=== PATIENT | male | born 1950 | race Caucasian/White ===

== ENCOUNTER 2024-03-06 22:55 | Inpatient (IN) | payer OTHER ==
[~2024-03-06] VITALS: Ht 170.2 cm; Wt 69.0 kg
[2024-03-07 00:11] LABS: CLARITY URINE TURBID (CLEAR); COLOR URINE RED (YELLOW); LEUKOCYTE ESTERASE URINE 2+ (NEGATIVE); NITRITE URINE POSITIVE (NEGATIVE); OCCULT BLOOD URINE 2+ (NEGATIVE); PROTEIN URINE 3+ (NEGATIVE); SPECIFIC GRAVITY URINE 1.037 (1.005-1.030); UROBILINOGEN URINE 0.2 E.U./dL (0.2-1.0)
[2024-03-07 00:38] LABS: GLUCOSE URINE TRACE (NEGATIVE); KETONES URINE TRACE (NEGATIVE)
[2024-03-07 00:53] LABS: BASOPHILS % 0.3 % (0.0-2.0); EOSINOPHILS % 0.6 % (0.0-5.0); HEMATOCRIT. 39.2 % (42.0-52.0); HEMOGLOBIN. 13.5 g/dL (14.0-18.0); LYMPHOCYTES % 7.9 % (20.0-50.0); MEAN CORPUSCULAR HEMOGLOBIN 29.7 pg (28.0-32.0); MEAN CORPUSCULAR HGB CONC 34.4 g/dL (31.0-37.0); MEAN CORPUSCULAR VOLUME 86.4 fL (80.0-94.0); MEAN PLATELET VOLUME 8.6 fl (7.4-10.4); MONOCYTES % 4.4 % (2.0-8.0); NEUTROPHILS % 86.8 % (40.0-76.0); PLATELET 240 x1000/uL (130-400); RED BLOOD CELL COUNT 4.53 mill/uL (4.7-6.1); RED CELL DISTRIBUTION WIDTH 13.2 % (11.6-14.6); WHITE BLOOD COUNT 9.8 x1000/uL (4.5-11.0)
[2024-03-07 00:55] LABS: RBC URINE TNTC /hpf (0-2); SQUAMOUS EPITHELIAL CELL URINE NONE SEEN /lpf (RARE/1+); WBC URINE 0-2 /hpf (0-2)
[2024-03-07 00:56] LABS: BACTERIA URINE NONE SEEN
[2024-03-07 00:58] LABS: CHLORIDE 107 mEq/L (98-107); POTASSIUM 4.4 mEq/L (3.5-5.1); SODIUM 139 mEq/L (136-145)
[2024-03-07 00:59] LABS: CARBON DIOXIDE 24 mEq/L (21-32)
[2024-03-07 01:04] LABS: CREATININE 0.8 mg/dL (0.6-1.3); GLUCOSE 128 mg/dL (70-105)
[2024-03-07 01:05] LABS: UREA NITROGEN BLOOD 18 mg/dL (9-23)
[2024-03-07] MEDS: CEFTRIAXONE 1GM/50ML 50 ML IV ONE (01:33)
[2024-03-07] MEDS ORDERED: ONDANSETRON HCL 4MG/2ML INJ IV PRN (10:15)
[2024-03-07] MEDS ORDERED: IPRATROPIUM/ALBUTEROL 0.5-3(2.5)MG/3ML NEB HHN PRN (10:15)
[2024-03-07] MEDS ORDERED: SODIUM CHLORIDE 0.9% 1,000 ML IV SCH (10:15)
[2024-03-07] MEDS ORDERED: MAGNESIUM/ALUMINUM HYDROXIDE/SIMETHICONE 30ML UDC PO PRN (10:15)
[2024-03-07] MEDS ORDERED: CLONIDINE 0.1MG TABLET PO PRN (10:15)
[2024-03-07] MEDS ORDERED: ACETAMINOPHEN 325MG TABLET PO PRN ×2 (10:15)
[2024-03-07] MEDS ORDERED: PIPERACILLIN/TAZOBACTAM 3.375 G in DEXTROSE 5% WATER 50 ML IV SCH (10:15)
[2024-03-07] MEDS: PIPERACILLIN/TAZO 3.375G/50ML IV SCH (11:05)
[2024-03-07] MEDS: SODIUM CHLORIDE 0.9% 1,000 ML IV SCH (11:13)
[2024-03-07] MEDS: PANTOPRAZOLE SODIUM 40 MG/VIAL IV SCH (11:18)
[2024-03-07 13:17] LABS: T4 FREE 0.93 ng/dL (0.89-1.76); THYROID STIMULATING HORMONE 3.26 uIU/mL (0.55-4.78)
[2024-03-07] MEDS: VANCOMYCIN 1.5GM/250ML IV NR (14:40)
[2024-03-08] VITALS: BP 124/78; PULSE 75; RESP 18; TEMP 97.5; TEMP 98.8
[2024-03-08 04:00] VITALS: BP 112/60; PULSE 70; RESP 19; TEMP 97.5
[2024-03-08 04:42] LABS: BASOPHILS % 0.4 % (0.0-2.0); EOSINOPHILS % 1.9 % (0.0-5.0); HEMOGLOBIN. 11.8 g/dL (14.0-18.0); LYMPHOCYTES % 10.5 % (20.0-50.0); MEAN CORPUSCULAR HEMOGLOBIN 29.4 pg (28.0-32.0); MEAN CORPUSCULAR HGB CONC 33.7 g/dL (31.0-37.0); MEAN CORPUSCULAR VOLUME 87.3 fL (80.0-94.0); MEAN PLATELET VOLUME 9.1 fl (7.4-10.4); MONOCYTES % 7.9 % (2.0-8.0); NEUTROPHILS % 79.3 % (40.0-76.0); PLATELET 225 x1000/uL (130-400); RED BLOOD CELL COUNT 4.01 mill/uL (4.7-6.1); RED CELL DISTRIBUTION WIDTH 13.4 % (11.6-14.6); WHITE BLOOD COUNT 9.9 x1000/uL (4.5-11.0)
[2024-03-08 04:48] LABS: CHLORIDE 107 mEq/L (98-107); POTASSIUM 4.2 mEq/L (3.5-5.1); SODIUM 139 mEq/L (136-145)
[2024-03-08 04:49] LABS: CALCIUM 8.4 mg/dL (8.7-10.4); CARBON DIOXIDE 24 mEq/L (21-32)
[2024-03-08 04:54] LABS: CREATININE 0.7 mg/dL (0.6-1.3); GLUCOSE 114 mg/dL (70-105); UREA NITROGEN BLOOD 11 mg/dL (9-23)
[2024-03-08 08:00] VITALS: BP 116/77; PULSE 60; RESP 19; TEMP 98.1
[2024-03-08] MEDS ORDERED: CAND32TA21 MT (10:26)
[2024-03-08 12:00] VITALS: BP 116/73; PULSE 69; RESP 20; TEMP 98.1
[2024-03-08] MEDS ORDERED: VANCOMYCIN 1GM/200ML PMX (BAXTER) IV SCH (12:00)
[2024-03-08] MEDS ORDERED: NON FORMULARY PATIENT HOME MED XX SCH (12:00)
[2024-03-08] MEDS ORDERED: VANCOMYCIN 1.25GM PMX (XELLIA) 250 ML IV SCH (12:00)
[2024-03-08] MEDS: VANCOMYCIN 750MG PREMIX 150 ML IV SCH (13:13)
[2024-03-08 15:51] LABS: ALANINE AMINOTRANSFERASE 14 IU/L (10-49); ALBUMIN 3.7 g/dL (3.2-4.8); ASPARTATE AMINOTRANSFERASE 22 IU/L (<34); BILIRUBIN DIRECT 0.3 mg/dL (<=3.0); PROTEIN TOTAL 5.8 g/dL (6.0-8.3)
[2024-03-08 16:00] VITALS: BP 114/63; PULSE 77; RESP 20; TEMP 98.1
[2024-03-08 20:00] VITALS: BP 119/77; PULSE 74; RESP 19; TEMP 98.2
[2024-03-09 04:00] VITALS: BP 122/66; PULSE 72; RESP 18; TEMP 97.7
[2024-03-09 07:26] LABS: CHLORIDE 107 mEq/L (98-107); POTASSIUM 4.1 mEq/L (3.5-5.1); SODIUM 140 mEq/L (136-145)
[2024-03-09 07:28] LABS: CARBON DIOXIDE 26 mEq/L (21-32)
[2024-03-09 07:29] LABS: CALCIUM 8.5 mg/dL (8.7-10.4)
[2024-03-09 07:33] LABS: BASOPHILS % 0.6 % (0.0-2.0); CREATININE 0.9 mg/dL (0.6-1.3); GLUCOSE 102 mg/dL (70-105); HEMATOCRIT. 31.9 % (42.0-52.0); HEMOGLOBIN. 10.8 g/dL (14.0-18.0); LYMPHOCYTES % 16.8 % (20.0-50.0); MEAN CORPUSCULAR HEMOGLOBIN 29.7 pg (28.0-32.0); MEAN CORPUSCULAR HGB CONC 33.9 g/dL (31.0-37.0); MEAN CORPUSCULAR VOLUME 87.6 fL (80.0-94.0); MEAN PLATELET VOLUME 8.9 fl (7.4-10.4); MONOCYTES % 7.9 % (2.0-8.0); NEUTROPHILS % 70.7 % (40.0-76.0); PLATELET 232 x1000/uL (130-400); RED BLOOD CELL COUNT 3.64 mill/uL (4.7-6.1); WHITE BLOOD COUNT 8.9 x1000/uL (4.5-11.0)
[2024-03-09 07:34] LABS: UREA NITROGEN BLOOD 11 mg/dL (9-23)
[2024-03-09 07:35] LABS: ALANINE AMINOTRANSFERASE 14 IU/L (10-49); ALBUMIN 3.4 g/dL (3.2-4.8); ASPARTATE AMINOTRANSFERASE 22 IU/L (<34)
[2024-03-09 07:36] LABS: BILIRUBIN DIRECT 0.3 mg/dL (<=3.0); BILIRUBIN TOTAL 0.9 mg/dL (0.1-1.0); PROTEIN TOTAL 5.4 g/dL (6.0-8.3)
[2024-03-09 08:00] VITALS: BP 122/74; PULSE 74; RESP 18; TEMP 97.9
[2024-03-09] MEDS: LOSARTAN 100 MG TABLET PO SCH (09:00)
[2024-03-09 12:00] VITALS: BP 122/69; PULSE 85; RESP 18; TEMP 98
[2024-03-09] MEDS: VANCOMYCIN 1G PREMIX 200 ML IV SCH ×2 (12:00→21:26)
[2024-03-09 20:00] VITALS: BP 116/69; PULSE 86; RESP 17; TEMP 97.5
[2024-03-10] VITALS: BP 115/74; PULSE 85; RESP 18; TEMP 97.6
[2024-03-10 06:58] LABS: CHLORIDE 108 mEq/L (98-107); POTASSIUM 4.1 mEq/L (3.5-5.1); SODIUM 140 mEq/L (136-145)
[2024-03-10 06:59] LABS: CALCIUM 8.4 mg/dL (8.7-10.4); CARBON DIOXIDE 26 mEq/L (21-32)
[2024-03-10 07:04] LABS: CREATININE 0.9 mg/dL (0.6-1.3); GLUCOSE 121 mg/dL (70-105); UREA NITROGEN BLOOD 11 mg/dL (9-23)
[2024-03-10 07:06] LABS: ALANINE AMINOTRANSFERASE 13 IU/L (10-49); ALBUMIN 3.3 g/dL (3.2-4.8); ASPARTATE AMINOTRANSFERASE 20 IU/L (<34); BILIRUBIN TOTAL 0.6 mg/dL (0.1-1.0); PROTEIN TOTAL 5.3 g/dL (6.0-8.3)
[2024-03-10 07:22] LABS: BASOPHILS % 0.9 % (0.0-2.0); EOSINOPHILS % 3.9 % (0.0-5.0); HEMATOCRIT. 29.3 % (42.0-52.0); HEMOGLOBIN. 9.9 g/dL (14.0-18.0); MEAN CORPUSCULAR HEMOGLOBIN 29.5 pg (28.0-32.0); MEAN CORPUSCULAR HGB CONC 33.8 g/dL (31.0-37.0); MEAN CORPUSCULAR VOLUME 87.1 fL (80.0-94.0); MEAN PLATELET VOLUME 8.6 fl (7.4-10.4); MONOCYTES % 8.3 % (2.0-8.0); NEUTROPHILS % 72.9 % (40.0-76.0); PLATELET 244 x1000/uL (130-400); RED BLOOD CELL COUNT 3.36 mill/uL (4.7-6.1); RED CELL DISTRIBUTION WIDTH 13.3 % (11.6-14.6); WHITE BLOOD COUNT 8.5 x1000/uL (4.5-11.0)
[2024-03-10 08:00] VITALS: BP 131/80; PULSE 74; RESP 18; TEMP 97.6
[2024-03-10] MEDS ORDERED: SULF1TAB48 MT (10:45)
[2024-03-10 12:00] VITALS: BP 134/71; PULSE 74; RESP 18; TEMP 97.7
[2024-03-10] MEDS: TAMSULOSIN HCL 0.4MG SR CAPSULE PO SCH (13:30)
[2024-03-10 16:00] VITALS: BP 120/75; PULSE 69; RESP 18; TEMP 97.7
[2024-03-10] MEDS: FINASTERIDE 5MG TABLET PO SCH (16:25)
[2024-03-10 20:00] VITALS: BP 108/65; PULSE 73; RESP 18; TEMP 96.4
[2024-03-11] VITALS: BP 117/72; PULSE 80; RESP 18; TEMP 97.7
[2024-03-11 04:00] VITALS: BP 104/68; PULSE 92; RESP 18; TEMP 98.7
[2024-03-11 08:00] VITALS: BP 131/63; PULSE 67; RESP 18; TEMP 97.7
[2024-03-11 12:17] VITALS: BP 131/63; PULSE 67; TEMP 98; O2SAT 100
== END 2024-03-11 14:20 | disposition home or self-care (01) | DRG 690 ==
LOC: ER 22:55 → EDBEDREQSVC 03-07 02:05 → EDBEDREQTM 03-07 02:05 → EDBEDREQ 03-07 02:05 → 5WST 03-07 17:11 → 6EST 03-07 23:46
PROVIDERS: ADMIT Internal Medicine; ATTEND Internal Medicine
DX: N30.91 Cystitis, unspecified with hematuria (principal); K44.9 Diaphragmatic hernia without obstruction or gangrene; N40.1 Benign prostatic hyperplasia with lower urinary tract symptoms; I10 Essential (primary) hypertension; N32.89 Other specified disorders of bladder; D64.9 Anemia, unspecified; Z79.899 Other long term (current) drug therapy; Z87.442 Personal history of urinary calculi
CPT/HCPCS: 36415; 74176; 80048; 80053; 80061; 80076; 80202; 81003; 84145; 84153; 84439; 84443; 85025; 86301; 99285; J0696; J2470; J2543; J3370